=== PATIENT | male | born 2000 | race Two or more races ===

== ENCOUNTER 2025-03-11 09:34 | Emergency (ER) | payer BC ==
[~2025-03-11] VITALS: Ht 185.4 cm; Wt 84.0 kg
[2025-03-11 09:43] VITALS: O2SAT 98
[2025-03-11] MEDS ORDERED: DEXAMETHASONE 1 MG/ML ORAL SYR PO ONE (10:45)
[2025-03-11] MEDS: DEXAMETHASONE 4MG TABLET PO NR (11:16)
[2025-03-11] MEDS: CHLORPROMAZINE HCL 25 MG TABLET PO ONE (11:16)
[2025-03-11] MEDS ORDERED: CHLO25TA68 MT (11:31)
[2025-03-11 11:58] VITALS: BP 136/91; PULSE 79; RESP 18; TEMP 36.8; O2SAT 100
== END 2025-03-11 11:59 | disposition home or self-care (01) ==
LOC: ER 09:34
DX: R06.6 Hiccough (principal); L29.9 Pruritus, unspecified; R11.0 Nausea
CPT/HCPCS: 99283; Q0161; J8540